=== PATIENT | male | born 1945 | race Caucasian/White ===

== ENCOUNTER → 2020-07-27 13:58 | Outpatient (CLI) | payer MEDICARE, OTHER, SELFPAY ==
[2020-07-27 15:57] LABS: Alanine Aminotransferase 31 IU/L (<50); Albumin 4.2 g/dL (3.5-5.0); Albumin Globulin Ratio 1.5 (1.0-2.8); Alkaline Phosphatase 92 U/L (38-126); Aspartate Aminotransferase 32 IU/L (17-59); BUN Creatinine Ratio 14.7 (6-22); Bilirubin Total 0.7 mg/dL (0.2-1.3); Blood Urea Nitrogen 16 mg/dL (9-20); Carbon Dioxide 23 mmol/L (22-32); Chloride 107 mmol/L (98-107); Cholesterol 205 mg/dL (140-199); Estimated Glomerular Filt Rate > 60.0 mL/min (>60); Globulin 2.8 g/dL (1.7-4.1); Glucose 80 mg/dL (80-110); HDL Cholesterol 42 mg/dL (40-60); HEMOLYSIS < 15 (0-50); LDL Cholesterol Calculated 128 mg/dL (<100); Potassium 4.3 mmol/L (3.4-5.1); Sodium 138 mmol/L (137-145); Triglycerides 175 mg/dL (35-150)
== END ==
PROVIDERS: PCP Family Medicine; Referring Provider Internal Medicine Cardiovascular Disease; Visit Provider Internal Medicine Cardiovascular Disease
DX: R07.89 Other chest pain (principal)
CPT/HCPCS: 36415; 80053; 80061

== ENCOUNTER → 2020-08-16 15:20 | Outpatient (CLI) | payer MEDICARE, OTHER, SELFPAY ==
--- NOTE | 2020-08-18 11:11 | PM.PFT.1 ---
Pulmonary Function Test Referral & Results Date Patient Seen: 08/16/20 Requesting provider: Robert Hough Results: The spirometry demonstrates an FVC of 3.14 L which is 84% of predicted. The FEV1 was measured at 1.52 L which is 57% of predicted. The FEV1/FVC ratio was 48 which is 66% of predicted. Following the administration of bronchodilator there was no appreciable change. No lung volumes were performed The diffusing capacity was measured at 14.86 which is 52% of predicted. No hemoglobin value was provided, so no correction for potential anemia could be made, if appropriate. Interpretation: This study demonstrates moderately severe obstructive lung disease based on reduction FEV1 as well as FEV/FVC ratio. There is no evidence of benefit following bronchodilator No lung volumes were performed so no assessment for potential restrictive lung disease was made There is also moderately severe reduction in diffusing capacity, as above, unless patient is anemic. Clinical correlation suggested
== END ==
PROVIDERS: PCP Family Medicine; Referring Provider Family Medicine; Visit Provider Internal Medicine
DX: C34.11 Malignant neoplasm of upper lobe, right bronchus or lung (principal); J98.8 Other specified respiratory disorders; Z87.891 Personal history of nicotine dependence
CPT/HCPCS: 94060; 94729

== ENCOUNTER 2021-11-08 10:28 | Day surgery (SDC) | payer MEDICARE, OTHER, SELFPAY ==
--- NOTE | 2021-11-07 19:46 | PM.PREOP ---
Pre-operative Note COVID-19 COVID-19 status: Negative Interval Note History & Physical reviewed/Exam performed by Physician: Yes Changes to H&P: No
--- NOTE | 2021-11-07 19:47 | PM.OP.1 ---
Operative Date/Time/Diagnoses Date of procedure: 11/08/21 Time of procedure: 11:45 Procedure & Clinicians Procedure: Preoperative diagnoses: 1. Left complex surgery with use of capsular dye. 2. Mature or advanced nuclear sclerotic and cortical cataract with poor visibility of the anterior capsule increasing surgical risks of complications. 3. 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 History of stroke 5. History of bladder cancer 6. History of cholecystectomy recently 7. History of 4 vessel cardiac bypass Postoperative diagnoses: 1. Left Complex surgery with use of capsular dye, 2. Placement of a posterior chamber intraocular lens implant. Surgeon: Joselin Boogie MD Complications: none Specimen: None Implant: DIBOO+19.5 Blood loss: None Anesthesia: Retrobulbar with monitored standby. Description of procedure: Dictated by: Joselin Boogie MD Post operative diagnoses: 1. Left cataract removed with use of capsular dye . 2. Placement of a posterior chamber intraocular lens. Procedure: Phacoemulsification with posterior chamber intraocular lens implant Surgeon: Joselin Boogie MD Blood loss: None Anesthesia: Retrobulbar with monitored standby Description of procedure: Patient has presented with decreased vision due to cataract which is affecting activities of daily living especially driving. His previous surgeries were canceled due to medical issues which have now improved. He states he is very symptomatic andwants surgery to improve vision. Cannot drive at all at night at this time. He understands the extra risk of surgery during the COVID-19 epidemic and wished to proceed. The patient has tested negative for active COVID-19 virus within 72 hours of the procedure. Stopped his metoprolol 3 days ago on advice of Cardiology though he is tachycardic today and he has not taken tamsulosin in the last week. He is at risk for floppy iris syndrome. The patient was taken to the operating room and given IV sedation. A retrobulbar block consisting of 6 cc of 2% xylocaine without epinephrine mixed half and half with 0.5% Marcaine with 1 cc of hyaluronidase added is placed between the medial and lateral 1/3 of the inferior orbital rim. The eye is manually massaged for 30 sec, prepped using Betadine solution, and draped in the usual sterile fashion. Temporal approach was made, a 1 mm side-port incision was performed 90 degrees from the planned corneal wound. Phenylephrine 1.5% mixed with 1% xylocaine 0.2 cc was placed into the anterior chamber. [An air bubble was placed and capsular blue dye was placed to improve visibility of the anterior capsule. The dye was irrigated out to reduce bubbles. Endocoat followed by Healon was then placed. A 2.6 mm clear incision with a 2.6 mm blade was placed. A 360 degree capsulorrhexis style capsulotomy was then performed with a cystitome needle on a Healon greatly aided by the capsular dye. Hydrodelineation and hydrodissection were performed. The phacoemulsification unit is introduced, and sculpting used to groove the central lens. It is then removed in chopping mode. Epi nucleus is removed with epinuclear mode and irrigation aspiration was used to remove the peripheral cortex. The posterior capsule is polished. The intraocular lens is selected, inspected, power confirmed, and placed in the posterior chamber. The wound was stromally hydrated and tested for leaks, there was none and was left sutureless. Intracameral moxifloxacin 0.1 cc was placed into the anterior chamber. Kenalog 0.2 cc was placed in the superior subconjunctival space. A drop of antibiotic and was placed and the eye was patched and shielded. The patient was stable and returned to the recovery room in excellent condition. His iris did not flop though it was slightly mobile during surgery. His pulse rate read reduced to the high 80s during surgery without medication. Dictated by: Joselin Boogie MD Copy to: [facility] Same procedure as scheduled: Yes
[2021-11-08] MEDS: PROPARACAINE 0.5% OPHTH SOL 2 DROPS EYE-OP (10:52)
[2021-11-08] MEDS: CATARACT EYE COMPOUND (10 DROPS/SYRINGE) 3 DROPS EYE-OP (10:53)
[2021-11-08 10:56] VITALS: BP 128/89; PULSE 112; RESP 18; TEMP 36.6; O2SAT 97; BMI 26.6
[2021-11-08] MEDS: LIDOCAINE 2% 4 ML, BUPIVACAINE 0.5% (PF) 4 ML, HYALURONIDASE 150 UNIT INJ (12:26)
[2021-11-08] MEDS: PHENYLEPHRINE/LIDOCAINE VIAL (OR) 0.2 ML EYE-OP (12:36)
[2021-11-08] MEDS: ERYTHROMYCIN OPHTH 1 GM OINT 1 APPLIC EYE-LEFT (12:36)
[2021-11-08] MEDS: MOXIFLOXACIN INJ 4 MG/0.8 ML VIAL 0.5 MG EYE-OP (12:36)
[2021-11-08] MEDS: HYALURONATE SODIUM 30 MG-10 MG/ML SYRINGES 1 BOX INTRAOCULA (12:36)
[2021-11-08] MEDS: TRIAMCINOLONE 50 MG/5 ML VIAL INJ (12:37)
[2021-11-08] MEDS: BALANCED SALT IRRIG SOLN NO.2 500 ML, EPINEPHrine 1 MG IRR (12:37)
[2021-11-08] MEDS: TRYPAN BLUE 0.5 ML SYRINGE INJ (12:37)
[2021-11-08 13:21] VITALS: BP 130/87; PULSE 94; RESP 16; TEMP 36.6; O2SAT 97
--- NOTE | 2021-11-08 13:27 | SUR.PHASEII ---
Patient up and dressed. Ready for discharge. Called . She just finished shopping in [place] and is heading this way. Patient with yury robert and call light in reach.
== END 2021-11-08 13:55 | disposition home or self-care (01) ==
LOC: OR 10:30
PROVIDERS: PCP Family Medicine; Referring Provider Ophthalmology; Visit Provider Ophthalmology
PROC: (CPT 66984; principal; 2021-11-08 11:45)
DX: H25.812 Combined forms of age-related cataract, left eye (principal); Z86.73 Personal history of transient ischemic attack (TIA), and cerebral infarction without residual deficits; R00.0 Tachycardia, unspecified
CPT/HCPCS: 66984; J0171; J2704; J3301; J3470

== ENCOUNTER 2021-11-15 08:33 | Day surgery (SDC) | payer MEDICARE, OTHER, SELFPAY ==
--- NOTE | 2021-11-14 17:35 | PM.PREOP ---
Pre-operative Note COVID-19 COVID-19 status: Negative Interval Note History & Physical reviewed/Exam performed by Physician: Yes Changes to H&P: No
--- NOTE | 2021-11-14 17:36 | PM.OP.1 ---
Operative Date/Time/Diagnoses Date of procedure: 11/15/21 Time of procedure: 09:45 Procedure & Clinicians Procedure: Preoperative diagnoses: 1. Right complex surgery with use of capsular dye. 2. Mature or advanced nuclear sclerotic and cortical cataract with poor visibility of the anterior capsule increasing surgical risks of complications. 3. 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 4. History of stroke 5. History of partial pulmonary ectomy 6. History of quadruple cardiac bypass 7. History of recent cholecystectomy 8. History of recent cataract surgery Postoperative diagnoses: 1.right Complex surgery with use of capsular dye, 2. Placement of a posterior chamber intraocular lens implant. Surgeon: Joselin Boogie MD Complications: none Specimen: None Implant: DIBOO+20.0 Blood loss: None Anesthesia: Retrobulbar with monitored standby. Description of procedure: Dictated by: Joselin Boogie MD Post operative diagnoses: 1. Right cataract removed with use of capsular dye . 2. Placement of a posterior chamber intraocular lens. Procedure: Phacoemulsification with posterior chamber intraocular lens implant Surgeon: Joselin Boogie MD Blood loss: None Anesthesia: Retrobulbar with monitored standby Description of procedure: Patient has presented with decreased vision due to cataract which is affecting activities of daily living especially driving. The patient wants surgery to improve vision. They understand the extra risk of surgery during the COVID-19 epidemic and wished to proceed. The patient has tested negative for active COVID-19 virus within 72 hours of the procedure. He has been on Flomax and is at risk for floppy iris syndrome. He will require capsular dye to improve visibility and safety during the procedure. The patient was taken to the operating room and given IV sedation. A retrobulbar block consisting of 6 cc of 2% xylocaine without epinephrine mixed half and half with 0.5% Marcaine with 1 cc of hyaluronidase added is placed between the medial and lateral 1/3 of the inferior orbital rim. The eye is manually massaged for 30 sec, prepped using Betadine solution, and draped in the usual sterile fashion. Temporal approach was made, a 1 mm side-port incision was performed 90 degrees from the planned corneal wound. Phenylephrine 1.5% mixed with 1% xylocaine 0.2 cc was placed into the anterior chamber. [An air bubble was placed and capsular blue dye was placed to improve visibility of the anterior capsule. The dye was irrigated out to reduce bubbles.Endocoat followed by José Miguel was then placed. A 2.6 mm clear incision with a 2.6 mm blade was placed. A 360 degree capsulorrhexis style capsulotomy was then performed with a cystitome needle on a Healon greatly aided by the capsular dye. Hydrodelineation and hydrodissection were performed. The phacoemulsification unit is introduced, and sculpting used to groove the central lens. It is then removed in chopping mode. Epi nucleus is removed with epinuclear mode and irrigation aspiration was used to remove the peripheral cortex. The posterior capsule is polished. The intraocular lens is selected, inspected, power confirmed, and placed in the posterior chamber. The wound was stromally hydrated and tested for leaks, there was none and was left sutureless. Intracameral moxifloxacin 0.1 cc was placed into the anterior chamber. Kenalog 0.2 cc was placed in the superior subconjunctival space. A drop of antibiotic and was placed and the eye was patched and shielded. The patient was stable and returned to the recovery room in excellent condition. Dictated by: Joselin Boogie MD Copy to: [facility] Same procedure as scheduled: Yes
[2021-11-15] MEDS: PROPARACAINE 0.5% OPHTH SOL 2 DROPS EYE-OP (08:55)
[2021-11-15] MEDS: CATARACT EYE COMPOUND (10 DROPS/SYRINGE) 3 DROPS EYE-OP (08:59)
[2021-11-15 09:05] VITALS: BMI 27.3
[2021-11-15 09:20] VITALS: BP 119/75; PULSE 106; RESP 14; TEMP 36.4; O2SAT 97
--- NOTE | 2021-11-15 10:06 | SUR.OPER ---
Addendum entered by Sayra Zaman R.N. 11/15/21 10:29: right hearing aid removed prior to procedure and placed in patient labeled specimen cup. Left hearing aid left in place. After procedure, patient taken to pre-op with hearing aid in container in his hand. Original Note: Supine on eye stretcher, head on extension cradle and foam donut then secured with tape. Arms tucked at sides with blanket. Pillow under knees.
[2021-11-15] MEDS: LIDOCAINE 2% 4 ML, BUPIVACAINE 0.5% (PF) 4 ML, HYALURONIDASE 150 UNIT INJ (10:08)
[2021-11-15] MEDS: PHENYLEPHRINE/LIDOCAINE VIAL (OR) 0.2 ML EYE-OP (10:09)
[2021-11-15] MEDS: TRIAMCINOLONE 50 MG/5 ML VIAL INJ (10:09)
[2021-11-15] MEDS: MOXIFLOXACIN INJ 4 MG/0.8 ML VIAL 0.5 MG EYE-OP (10:09)
[2021-11-15] MEDS: HYALURONATE SODIUM 30 MG-10 MG/ML SYRINGES 1 BOX INTRAOCULA (10:09)
[2021-11-15] MEDS: ERYTHROMYCIN OPHTH 1 GM OINT 1 APPLIC EYE-RIGHT (10:10)
[2021-11-15] MEDS: BALANCED SALT IRRIG SOLN NO.2 500 ML, EPINEPHrine 1 MG IRR (10:10)
[2021-11-15] MEDS: TRYPAN BLUE 0.5 ML SYRINGE INJ (10:10)
[2021-11-15 10:35] VITALS: BP 116/74; PULSE 88; RESP 16; TEMP 36.2; O2SAT 94
[2021-11-15 10:45] VITALS: BP 115/76; PULSE 87; RESP 16; O2SAT 97
== END 2021-11-15 11:03 | disposition home or self-care (01) ==
LOC: OR 08:35
PROVIDERS: PCP Family Medicine; Referring Provider Ophthalmology; Visit Provider Ophthalmology
PROC: (CPT 66984; principal; 2021-11-15 09:45)
DX: H25.811 Combined forms of age-related cataract, right eye (principal); Z86.73 Personal history of transient ischemic attack (TIA), and cerebral infarction without residual deficits
CPT/HCPCS: 66984; J0171; J2250; J3010; J3301; J3470

== ENCOUNTER → 2025-10-05 08:17 | Outpatient (CLI) | payer MEDICARE, SELFPAY ==
--- NOTE | 2025-10-07 07:23 | DI.NM.S_ITS ---
DATE OF SERVICE: 10/05/2025 PROCEDURE: Pharmacological perfusion study. INDICATIONS: Shortness of breath with known history of bypass surgery. RADIOPHARMACEUTICAL: 27.4 mCi technetium-99m Myoview IV was injected at stress and 12.9 mCi technetium-99m Myoview IV was injected at rest. CARDIAC STRESS: The patient underwent IV Lexiscan perfusion study under the supervision of an attending staff using standard IV Lexiscan as per protocol. Remained hemodynamically stable. Baseline blood pressure 120/80. Baseline rhythm sinus with right bundle-branch block and left anterior fascicular block. During stress, no new convincing ischemic changes or arrhythmias seen. No chest pain. Had minimal dyspnea. RAW DATA: There is increased subdiaphragmatic activity. GATED STUDY: Stress LV ejection fraction 68% without any obvious wall motion abnormalities. Resting end-diastolic volume 62 mL. TID ratio 1.0, which is within normal limits. Lung/heart ratio 0.33, which is within normal limits. MYOCARDIAL PERFUSION SCAN: Stress supine, resting supine, and stress prone images were compared to each other. Stress supine and resting supine images revealed moderate size, moderately decreased perfusion of base to mid inferior wall which got completely resolved during stress prone images suggestive of diaphragmatic tissue attenuation artifact. No convincing ischemia or infarction. CONCLUSION: I will call this study a normal myocardial perfusion study with evidence of diaphragmatic tissue attenuation artifact, which got improved during stress prone images as stated above. Preserved LV function. Baseline rhythm sinus with right bundle-branch block and left anterior fascicular block. No ischemic EKG changes or new significant arrhythmias. No chest pain. Overall, low-risk myocardial perfusion scan. Klaus Escobar - REGINA/dagmar/KRISTI doc#: [id number]/job#: [id number] dd: 10/05/2025 17:13:00 dt: 10/06/2025 00:55:00 DICTATING MD/COPIES TO: Tabby Avendaño MD COPIES MNE: YO;
== END ==
LOC: NUCM 08:19
PROVIDERS: PCP Student in an Organized Health Care Education/Training Program; Referring Provider Student in an Organized Health Care Education/Training Program; Visit Provider Student in an Organized Health Care Education/Training Program
DX: R06.09 Other forms of dyspnea (principal); Z95.1 Presence of aortocoronary bypass graft
CPT/HCPCS: 78452; 93017; A9502; J2785